=== PATIENT | male | born 1940 | race Caucasian/White ===

== ENCOUNTER → 2017-03-10 | Outpatient (CLI) | payer MEDICARE, OTHER ==
[~2017-03-10] MED LIST: ASCORBIC ACID500 M3 PO; ASPIRIN325 MG PO; Ascorbic Acid,Ester- PO; Aspirin GT; CALCIUM 600 +1 EAC4 PO; CARVEDILOL6.25 MG PO; CRESTOR40 MG PO; Colace PO; Coreg PO; Hytone 2.5% TP; Kenalog 0.1% Cream TP; LO-DOSE ASPIRIN81 M2 PO; Lipitor PO; MUCINEX FAST-M1 EAC2 PO; MULTI-DAY VITA1 EACH PO; Nitrostat,NitroQuick SL; PANTOPRAZOLE SO40 MG PO; PLAVIX75 MG PO; PRINIVIL10 MG PO; Percocet 5/325,Endoc PO; Protonix PO; THERAGRAN1 TABLET PO; Tylenol Regular Stre PO; VITAMIN D2000 INTUN PO; Zestril,Prinivil PO
== END | disposition home or self-care (01) ==
LOC: CDC 08:40
DX: I25.2 Old myocardial infarction (principal); Z85.51 Personal history of malignant neoplasm of bladder
CPT/HCPCS: 93000